=== PATIENT | male | born 1990 | race African-American/Black ===

== ENCOUNTER → 2017-10-19 | Outpatient (REF) | payer OTHER | LOC: M SFHCLERA 18:53 | PROVIDERS: ATTEND Nurse Practitioner Family | DX: Z01.89 Encounter for other specified special examinations (principal) ==

== ENCOUNTER 2018-12-21 22:02 | Emergency (ER) | payer OTHER ==
[~2018-12-21] VITALS: Ht 185.4 cm; Wt 90.9 kg
[2018-12-21] MEDS ORDERED: KETOROLAC TROMETHAMINE 10 MG TAB PO ONE (22:30)
[2018-12-21 23:29] VITALS: BP 125/71
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
== END 2018-12-21 23:34 | disposition home or self-care (01) ==
LOC: M ED 22:02
DX: S60.222A Contusion of left hand, initial encounter (principal); V49.49XA Driver injured in collision with other motor vehicles in traffic accident, initial encounter; Y92.410 Unspecified street and highway as the place of occurrence of the external cause

== ENCOUNTER 2020-04-11 14:04 | Emergency (ER) | payer OTHER ==
[~2020-04-11] VITALS: Ht 188 cm; Wt 101.8 kg
[2020-04-11] MEDS ORDERED: GI COCKTAIL 50ML BTL(HYOSCYAMINE/MAALOX/LIDOCAINE VISCOUS)(1:3:1) PO ONE (14:30)
[2020-04-11 14:56] LABS: BASO # 0.1 10^3/uL (0.0-0.2); BASO % 0.8 % (0.0-1.0); EOS # 0.2 10^3/uL (0.0-0.5); EOS % 2.3 % (0.0-3.0); HEMOGLOBIN 14.7 g/dl (13.5-17.5); LYMPH # 1.6 10^3/uL (1.5-5.0); LYMPH % 24.7 % (24.0-44.0); MEAN CORPUSCULAR HEMOGLOBIN 29.6 pg (27.0-33.0); MEAN CORPUSCULAR VOLUME 84.5 fl (80.0-96.0); MONO # 0.5 10^3/uL (0.0-0.8); NEUTROPHILS # 4.2 10^3/uL (1.5-8.5); NEUTROPHILS % 64.7 % (36.0-66.0); PLATELET COUNT, AUTOMATED 239 10^3/uL (150-450); RED BLOOD COUNT 4.97 10^6/uL (4.30-6.10); WHITE BLOOD COUNT 6.5 10^3/uL (4.0-10.0)
[2020-04-11 15:05] LABS: INR 1.04; PROTHROMBIN TIME 13.3 SECONDS (11.8-14.0)
[2020-04-11 15:06] LABS: PARTIAL THROMBOPLASTIN TIME 31.3 SECONDS (25.0-38.4)
[2020-04-11] MEDS ORDERED: ISOVUE-370 76% 100ML VIAL As Ordered ONE (15:19)
[2020-04-11 15:22] LABS: ALT/SGPT 28 U/L (12-78); BILIRUBIN,DIRECT 0.2 MG/DL (0.0-0.2); BILIRUBIN,TOTAL 0.7 MG/DL (0.2-1.0); CK-MB VALUE MASS < 1.0 NG/ML (<3.6); CPK CREATINE PHOSPHOKINASE 107 U/L (39-308); LIPASE 78 U/L (73-393); MB/CK RELATIVE INDEX 0.93 (< OR =4); TOTAL PROTEIN 7.5 GM/DL (6.4-8.2); TROPONIN I < 0.02 NG/ML (< 0.10)
--- NOTE | 2020-04-11 15:47 | REP ---
CHEST, SINGLE VIEW: There is no evidence of acute infiltrate. No pleural effusion is seen. The heart is normal in size. The mediastinal silhouette is unremarkable. The visualized osseous structures are intact. IMPRESSION: No acute pulmonary disease. Electronically Signed by Jason Alcantara MD 04/11/2020 04:49 P
[2020-04-11] MEDS ORDERED: KETOROLAC 30 MG/ML 1ML VIAL IV ONE (16:00)
--- NOTE | 2020-04-11 16:24 | REP ---
CT THORACIC AND ABDOMINAL AORTIC ANGIOGRAM: With IV contrast. HISTORY: Chest pain, rule out dissection. COMPARISON STUDIES: No comparison study. CONTRAST DOSE: 100 mL of Isovue [address] TECHNIQUE: Helical scanning is acquired and overlapping 1.5 mm and contiguous 3 mm axial images are reformatted. In addition, maximum intensity projection and multiplanar re-formation images are generated in sagittal and coronal imaging projections. FINDINGS: Preliminary physician/allergy/immunology view of the chest and abdomen shows no abnormality. There is good opacification in the thoracic aorta. There is no evidence of thoracic aortic aneurysm or dissection. There is also good opacification of the pulmonary arterial tree. There is no filling defect or vessel cutoff to suggest pulmonary embolus. No pleural or pericardial effusion is seen. No hilar or mediastinal mass or adenopathy is observed. There is some residual thymic tissue in the anterior mediastinum. The abdominal aorta is normal in caliber again without evidence of dissection or aneurysm. Single nonstenotic renal arteries are observed bilaterally. Celiac and superior mesenteric vessels are unremarkable. The inferior mesenteric artery is unremarkable. Liver, spleen, kidneys and pancreas and gallbladder are unremarkable in the upper abdomen. Small and large bowel loops show no abnormality. The lung mercado are clear without evidence of infiltrate. No pulmonary mass or nodule is seen. Bone window settings show no bony destructive lesion. IMPRESSION: No CT evidence of aneurysm or dissection or pulmonary embolus. No active disease in the chest. No acute abnormality noted in the abdomen. Electronically Signed by Bret Lara MD 04/12/2020 08:28 A
[2020-04-11] MEDS ORDERED: KETO10TAB PO (17:13)
[2020-04-11 17:15] VITALS: BP 118/68
--- NOTE | 2020-04-11 21:15 | ECGEPIP ---
[facility] - ED Test Date: 2020-04-11 Pat Name: JEWELL ALVAREZ Department: Room: - Gender: Male Head Of Quality: [email or web address] : 1990 Requested By: RAHAT Dejesus Order Number: [id number] Reading MD: Lexi Thorne Measurements Intervals [place] Rate: 68 P: 29 NM: 144 QRS: 57 QRSD: 104 T: 28 QT: 364 QTc: 389 Interpretive Statements SINUS RHYTHM WITH SINUS ARRHYTHMIA NONSPECIFIC T-WAVE ABNORMALITY NO PRIOR Electronically Signed on 04-11-2020 21:14:44 EDT by Lexi Thorne
--- NOTE | 2020-04-11 21:16 | ECGEPIP ---
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
== END 2020-04-11 17:32 | disposition home or self-care (01) ==
LOC: M ED 14:04
DX: R07.89 Other chest pain (principal); R06.02 Shortness of breath; R42 Dizziness and giddiness
CPT/HCPCS: 36415; 71045; 71275; 80047; 80076; 82550; 82553; 83690; 84484; 85025; 85610; 85730; 93005; 93041; 94760; 96374; 99285; J1885; Q9967

== ENCOUNTER → 2020-06-21 | Outpatient (CLI) | payer OTHER ==
[~2020-06-21] MED LIST: KETO10TAB PO
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
== END ==
LOC: M SLEEP 20:00
PROVIDERS: ATTEND Nurse Practitioner Family
DX: R40.0 Somnolence (principal)